=== PATIENT | male | born 1970 | race Caucasian/White ===

== ENCOUNTER 2017-06-26 20:01 | Emergency (ER) | payer MEDICAID ==
[~2017-06-26] VITALS: Ht 180.3 cm; Wt 99.8 kg
--- NOTE | 2017-06-26 20:09 | NUR ---
PT A/OX4 BREATHING EFFORTLESSLY ON ROOM AIR, PT STATES HE HAS BEEN HVAING MIDSTERNAL AND LEFT SIDED CP X 2 DAYS, PT STATES HE DRINKS EVERY DAY AND HIS LAST DRINK WAS 4 HOURS AGO, PT ON MONITOR, IV PLACED LABS DRAWN, VSS, WILL CONTINUE TO MONITOR.
[2017-06-26] MEDS ORDERED: LIDOCAINE VISCOUS 2% UD 15 ML UDC MM ONE (20:30)
[2017-06-26] MEDS ORDERED: MAG HYDROX/AL HYDROX/SIMETH 30 ML UDC PO ONE (20:30)
[2017-06-26] MEDS ORDERED: NITROGLYCERIN PACKET 1 GM PACKET TD ONE (20:30)
[2017-06-26] MEDS ORDERED: ASPIRIN 81 MG TAB.CHEW PO ONE (20:30)
[2017-06-26] MEDS ORDERED: NITROGLYCERIN PACKET 1 GM PACKET ONE (20:41)
[2017-06-26] MEDS ORDERED: LIDOCAINE VISCOUS 2% UD 15 ML UDC ONE (20:41)
[2017-06-26] MEDS ORDERED: MAG HYDROX/AL HYDROX/SIMETH 30 ML UDC ONE (20:41)
[2017-06-26] MEDS ORDERED: ASPIRIN 81 MG TAB.CHEW ONE (20:41)
[2017-06-26 20:59] LABS: EOSINOPHILS % (AUTO) 0.4 % (0.0-6.0); MONOCYTES # (AUTO) 0.7 /CMM (0.1-1.30)
[2017-06-26] MEDS ORDERED: MORPHINE SULFATE INJ 2 MG/ML DISP.SYRIN ONE (20:59)
[2017-06-26] MEDS ORDERED: ONDANSETRON HCL/PF 4 MG/2 ML VIAL ONE (20:59)
[2017-06-26] MEDS ORDERED: ONDANSETRON HCL/PF - ER 4 MG/2 ML VIAL IV ONE (21:00)
[2017-06-26] MEDS ORDERED: MORPHINE SULFATE INJ 4 MG/ML DISP.SYRIN IV ONE (21:00)
[2017-06-26 21:04] LABS: BASOPHILS # (AUTO) 0.4 /CMM (0.0-0.2); BASOPHILS % (AUTO) 4.7 % (0.0-2.0); HEMATOCRIT 47 % (39-51); HEMOGLOBIN 16.2 g/dL (13.5-17.5); LYMPHOCYTES # (AUTO) 1.3 /CMM (0.8-4.8); LYMPHOCYTES % (AUTO) 16.7 % (20.0-44.0); MEAN CORPUSCULAR HEMOGLOBIN 34 PG (26.0-33.0); MEAN CORPUSCULAR HGB CONC 34 g/dl (31.0-36.0); MEAN CORPUSCULAR VOLUME 99 fL (80-96); NEUTROPHILS # (AUTO) 5.3 /CMM (1.8-8.9); NEUTROPHILS % (AUTO) 69.2 % (43.0-81.0); PLATELET COUNT (AUTO) 243 /CMM (150-450); RDW COEFFICIENT OF VARIATION 13.3 (11.5-15.0); RED BLOOD CELL COUNT(AUTO) 4.78 MIL/uL (4.5-6.0); WHITE BLOOD COUNT (AUTO) 7.7 K/uL (4.3-11.0)
[2017-06-26 21:11] LABS: CALCIUM, SERUM 9.3 mg/dL (8.5-10.1); CARBON DIOXIDE 26 mmol/L (21-32); CHLORIDE 97 mmol/L (98-107); CREATININE 0.9 mg/dL (0.6-1.3); GLUCOSE 93 mg/dL (74-106); POTASSIUM 4.1 mmol/L (3.5-5.1); SODIUM SERUM 135 mmol/L (136-145); UREA NITROGEN, BLOOD 10 mg/dL (7-18)
[2017-06-26 21:16] LABS: INR 0.88 (0.87-1.13); PROTHROMBIN TIME 9.1 SECS (9.5-12.7)
[2017-06-26 21:18] LABS: TROPONIN I < 0.017 ng/mL (0.00-0.056)
[2017-06-26] MEDS ORDERED: IV NS 0.9% 250 ML IV ONE (21:19)
[2017-06-26] MEDS ORDERED: IOHEXOL-350 100 ML VIAL IV ONE (21:19)
[2017-06-26 21:23] LABS: ALANINE AMINOTRANSFERASE 353 U/L (12-78); ALBUMIN 4.5 g/dL (3.4-5.0); ALKALINE PHOSPHATASE 74 U/L (46-116); ASPARTATE AMINOTRANSFERASE 178 U/L (15-37); B-TYPE NATRIURETIC PEPTIDE 91 PG/ML (0-125); BILIRUBIN,DIRECT 0.3 mg/dL (0.0-0.2); TOTAL PROTEIN, SERUM 8.7 g/dL (6.4-8.2)
[2017-06-26] MEDS ORDERED: CHLORDIAZEPOXIDE HCL 25 MG CAPSULE ONE (21:56)
[2017-06-26] MEDS ORDERED: LORAZEPAM INJ 2 MG/ML VIAL ONE (21:57)
[2017-06-26] MEDS ORDERED: IV NS 0.9% 1,000 ML BAG IV ONE (22:00)
[2017-06-26] MEDS ORDERED: LORAZEPAM INJ 2 MG/ML VIAL IV ONE (22:00)
[2017-06-26] MEDS ORDERED: CHLORDIAZEPOXIDE HCL 25 MG CAPSULE PO ONE (22:00)
--- NOTE | 2017-06-26 22:14 | NUR ---
PT STATES HE IS FEELING BETTER AND THE PAIN IS BETTER, MD MADE AWARE WILL CONTINUE TO MONITOR.
[2017-06-26 22:42] VITALS: BP 129/86
--- NOTE | 2017-06-26 22:44 | NUR ---
Patient discharged to home in stable condition. Written and verbal after care instructions given. Patient verbalizes understanding of instruction. IV removed. Catheter intact and site benign. Pressure and 4x4 applied to site. No bleeding noted. Pt ambulatory with a steady gait. VSS, NAD noted on DC. Denies complaint on DC.
== END 2017-06-26 22:56 | disposition home or self-care (01) ==
LOC: EDBD 20:02 → ER 20:02
DX: R07.81 Pleurodynia (principal); F10.10 Alcohol abuse, uncomplicated; D75.89 Other specified diseases of blood and blood-forming organs; I48.91 Unspecified atrial fibrillation; R74.0 Nonspecific elevation of levels of transaminase and lactic acid dehydrogenase [LDH]; I10 Essential (primary) hypertension
CPT/HCPCS: 36415; 71010-TC; 80048-TC; 80076-TC; 83880; 84484-TC; 85025-TC; 85730-TC; A4606; J2060; J2270; J2405; J7030; J7050; Q9967; Z7610